=== PATIENT | female | born 1950 | race Caucasian/White ===

== ENCOUNTER 2023-09-24 06:10 | Inpatient (IN) ==
[2023-09-24] MEDS ORDERED: IOPAMIDOL 100 ML BOTTLE IV ONE (06:11)
[2023-09-24] MEDS: 0.9 % SODIUM CHLORIDE 1,000 ML IV ONE ×2 (06:52→08:19)
[2023-09-24] MEDS: ONDANSETRON 4 MG/2 ML VIAL IV ONE (06:52)
[2023-09-24 07:11] LABS: Basophils # (Auto) 0.03 K/mcL (0.00-0.30); Basophils % (Auto) 0.2 % (0.0-2.0); Eosinophils # (Auto) 0.23 K/mcL (0.00-0.70); Eosinophils % (Auto) 1.9 % (0.0-7.0); Hematocrit 44.2 % (34.1-44.9); Hemoglobin 14.5 g/dL (11.2-15.7); Lymphocytes # (Auto) 0.74 K/mcL (1.50-4.80); Mean Cell Volume 108.3 fL (80.0-100.0); Mean Corpuscular HGB Conc 32.8 g/dL (31.0-36.0); Mean Platelet Volume 8.8 fL (8.8-12.5); Monocytes # (Auto) 1.42 K/mcL (0.10-0.90); Monocytes % (Auto) 11.5 % (1.0-12.0); Neutrophils % (Auto) 79.7 % (38.0-78.0); Platelet Count 294 K/mcL (140-440); RBC 4.08 M/mcL (3.59-5.38); Red Cell Distribution Width 12.6 % (11.5-14.5); WBC 12.4 K/mcL (4.5-11.0)
[2023-09-24 07:13] LABS: Appearance,Urine Clear (Clear); Bilirubin,Urine Negative (Negative); Color,Urine Yellow; Culture Indicated,Urine No; Glucose,Urine (UA) Negative (Negative); Ketones,Urine Trace mg/dL (Negative); Leukocyte Esterase,Urine Negative /uL (Negative); Nitrate,Urine Negative (Negative); PH,Urine 5.5 (5.0-9.0); Protein,Urine Negative (Negative); Specific Gravity,Urine 1.015 (1.000-1.035); Urine Blood Negative ery/mcL (Negative); Urobilinogen,Urine Normal
[2023-09-24 07:32] LABS: ALT/SGPT 23 U/L (<40); AST/SGOT 28 U/L (<32); Albumin 3.3 gm/dL (3.2-5.2); Alkaline Phosphatase 124 U/L (39-117); Bilirubin,Total 0.4 mg/dL (0.1-1.0); Blood Urea Nitrogen 32 mg/dL (8-23); Calcium 9.2 mg/dL (8.6-10.4); Carbon Dioxide 28 mmol/L (22-30); Chloride 94 mmol/L (96-108); Globulin 3.2 gm/dL (2.2-3.7); Glomerular Filtration Rate 91; Glucose 105 mg/dL (70-105); Potassium 4.8 mmol/L (3.3-5.1); Sodium 133 mmol/L (133-145)
[2023-09-24] MEDS: VANCOMYCIN 1,000 MG in 0.9 % SODIUM CHLORIDE 250 ML IV ONE (10:04)
[2023-09-24] MEDS: KETOROLAC 15 MG/ML VIAL IV ONE (12:44)
[2023-09-24] MEDS ORDERED: POTASSIUM CHLORIDE 40 MEQ in DEXTROSE 5% IN WATER 500 ML IV PRN (15:43)
[2023-09-24] MEDS ORDERED: ONDANSETRON 4 MG/2 ML VIAL IV PRN (15:43)
[2023-09-24] MEDS ORDERED: POTASSIUM CHLORIDE 20 MEQ TABLET PO PRN ×2 (15:43)
[2023-09-24] MEDS ORDERED: MAGNESIUM SULFATE 2 GM/50 ML BAG IV PRN (15:43)
[2023-09-24] MEDS ORDERED: LABETALOL HCL 20 MG/4 ML VIAL IV PRN (16:01)
[2023-09-24] MEDS: ACETAMINOPHEN 325 MG TABLET PO PRN (16:08)
[2023-09-24] MEDS ORDERED: Pilocarpine Hcl 5 mg tablet PO PRN (16:14)
[2023-09-24] MEDS: metroNIDAZOLE 500 MG/100 ML BAG IV ONE (16:18)
[2023-09-24] MEDS: 0.9 % SODIUM CHLORIDE 1,000 ML IV SCH (16:18)
[2023-09-24] MEDS: VANCOMYCIN 125 MG CAPSULE PO SCH (16:19)
[2023-09-24] MEDS: 0.9 % SODIUM CHLORIDE 10 ML SYRINGE IV SCH (16:29)
[2023-09-24] MEDS: IPRATROPIUM/ALBUTEROL 3 ML AMPUL.NEB NEB PRN (20:13)
[2023-09-24] MEDS: GABAPENTIN 300 MG CAPSULE PO PRN (21:13)
[2023-09-24] MEDS: CYCLOBENZAPRINE 10 MG TABLET PO PRN (21:13)
[2023-09-24] MEDS: metroNIDAZOLE 500 MG/100 ML BAG IV SCH (21:13)
[2023-09-24] MEDS: CIPROFLOXACIN 400 MG/200 ML BAG IV ONE (22:51)
[2023-09-24] MEDS: CIPROFLOXACIN 400 MG/200 ML BAG IV SCH (22:54)
[2023-09-25 06:02] LABS: Basophils # (Auto) 0.02 K/mcL (0.00-0.30); Basophils % (Auto) 0.2 % (0.0-2.0); Eosinophils # (Auto) 0.15 K/mcL (0.00-0.70); Eosinophils % (Auto) 1.3 % (0.0-7.0); Hematocrit 39.2 % (34.1-44.9); Hemoglobin 12.6 g/dL (11.2-15.7); Lymphocytes # (Auto) 0.65 K/mcL (1.50-4.80); Lymphocytes % (Auto) 5.8 % (15.5-49.0); Mean Cell Volume 110.7 fL (80.0-100.0); Mean Corpuscular HGB Conc 32.1 g/dL (31.0-36.0); Mean Platelet Volume 8.9 fL (8.8-12.5); Monocytes # (Auto) 1.11 K/mcL (0.10-0.90); Monocytes % (Auto) 9.9 % (1.0-12.0); Neutrophils % (Auto) 81.8 % (38.0-78.0); Platelet Count 270 K/mcL (140-440); RBC 3.54 M/mcL (3.59-5.38); Red Cell Distribution Width 12.8 % (11.5-14.5); WBC 11.2 K/mcL (4.5-11.0)
[2023-09-25 06:14] LABS: ALT/SGPT 18 U/L (<40); AST/SGOT 28 U/L (<32); Albumin 2.9 gm/dL (3.2-5.2); Albumin/Globulin Ratio 1.1 (1.0-2.3); Alkaline Phosphatase 109 U/L (39-117); Bilirubin,Direct < 0.2 mg/dL (0-0.3); Bilirubin,Total 0.3 mg/dL (0.1-1.0); Blood Urea Nitrogen 18 mg/dL (8-23); Calcium 8.2 mg/dL (8.6-10.4); Carbon Dioxide 21 mmol/L (22-30); Chloride 103 mmol/L (96-108); Globulin 2.6 gm/dL (2.2-3.7); Glomerular Filtration Rate 115; Glucose 68 mg/dL (70-105); Lactate Dehydrogenase 203 U/L (135-225); Phosphorous 1.9 mg/dL (2.5-4.5); Potassium 4.7 mmol/L (3.3-5.1); Sodium 136 mmol/L (133-145); Triglycerides 96 mg/dL (<150); Uric Acid 3.5 mg/dL (2.5-8.0)
[2023-09-25] MEDS: ALPRAZolam 0.25 MG TABLET PO PRN (09:33)
[2023-09-25] MEDS: HYDROcodone/APAP 5/325MG TABLET PO PRN (09:34)
[2023-09-25] MEDS: predniSONE 5 MG TABLET PO SCH (09:35)
[2023-09-25] MEDS: ATORVASTATIN 40 MG TABLET PO SCH (09:35)
[2023-09-25] MEDS: MECLIZINE 25 MG TABLET PO SCH (09:35)
[2023-09-25] MEDS: ENOXAPARIN 30 MG/0.3 ML SYRINGE SQ SCH (09:35)
[2023-09-25] MEDS: predniSONE 1 MG TABLET PO SCH (09:35)
[2023-09-25] MEDS: TIOTROPIUM BROMIDE 18 MCG INHALANT INH SCH (09:36)
[2023-09-25] MEDS: LEFLUNOMIDE 20 MG TABLET PO SCH (09:40)
[2023-09-25] MEDS: SODIUM PHOSPHATE 30 MMOL in DEXTROSE 5% IN WATER 500 ML IV ONE (09:40)
[2023-09-25] MEDS: CIPROFLOXACIN 400 MG/200 ML BAG IV SCH (09:40)
[2023-09-26 05:42] LABS: Basophils # (Auto) 0.01 K/mcL (0.00-0.30); Basophils % (Auto) 0.1 % (0.0-2.0); Eosinophils % (Auto) 1.2 % (0.0-7.0); Hematocrit 38.8 % (34.1-44.9); Hemoglobin 12.8 g/dL (11.2-15.7); Lymphocytes # (Auto) 0.74 K/mcL (1.50-4.80); Lymphocytes % (Auto) 8.8 % (15.5-49.0); Mean Cell Volume 108.1 fL (80.0-100.0); Mean Platelet Volume 8.7 fL (8.8-12.5); Monocytes # (Auto) 0.65 K/mcL (0.10-0.90); Monocytes % (Auto) 7.7 % (1.0-12.0); Neutrophils % (Auto) 80.8 % (38.0-78.0); Platelet Count 261 K/mcL (140-440); RBC 3.59 M/mcL (3.59-5.38); Red Cell Distribution Width 12.5 % (11.5-14.5); WBC 8.4 K/mcL (4.5-11.0)
[2023-09-26 06:09] LABS: ALT/SGPT 16 U/L (<40); AST/SGOT 24 U/L (<32); Albumin/Globulin Ratio 1.3 (1.0-2.3); Alkaline Phosphatase 107 U/L (39-117); Bilirubin,Direct < 0.2 mg/dL (0-0.3); Bilirubin,Total 0.3 mg/dL (0.1-1.0); Blood Urea Nitrogen 5 mg/dL (8-23); Calcium 8.2 mg/dL (8.6-10.4); Carbon Dioxide 28 mmol/L (22-30); Chloride 101 mmol/L (96-108); Globulin 2.4 gm/dL (2.2-3.7); Glomerular Filtration Rate 115; Glucose 81 mg/dL (70-105); Lactate Dehydrogenase 194 U/L (135-225); Phosphorous 1.7 mg/dL (2.5-4.5); Potassium 4.1 mmol/L (3.3-5.1); Sodium 136 mmol/L (133-145); Triglycerides 50 mg/dL (<150); Uric Acid 1.8 mg/dL (2.5-8.0)
[2023-09-26] MEDS: LISINOPRIL 10 MG TABLET PO SCH (08:58)
[2023-09-26] MEDS: PHOSPHORUS 250 MG TABLET PO SCH (08:58)
[2023-09-26] MEDS: amLODIPine 5 MG TABLET PO SCH (08:58)
[2023-09-26] MEDS: NEUTRA PHOS 1 PACKET PO SCH (08:59)
[2023-09-26] MEDS: SODIUM PHOSPHATE 30 MMOL in DEXTROSE 5% IN WATER 500 ML IV ONE (10:10)
[2023-09-27 07:14] LABS: Phosphorous 1.8 mg/dL (2.5-4.5)
[2023-09-27 07:35] LABS: Basophils # (Auto) 0.02 K/mcL (0.00-0.30); Basophils % (Auto) 0.2 % (0.0-2.0); Eosinophils # (Auto) 0.06 K/mcL (0.00-0.70); Eosinophils % (Auto) 0.7 % (0.0-7.0); Hematocrit 41.8 % (34.1-44.9); Hemoglobin 13.8 g/dL (11.2-15.7); Lymphocytes # (Auto) 0.88 K/mcL (1.50-4.80); Mean Cell Volume 106.6 fL (80.0-100.0); Monocytes # (Auto) 0.75 K/mcL (0.10-0.90); Monocytes % (Auto) 8.5 % (1.0-12.0); Neutrophils % (Auto) 78.7 % (38.0-78.0); Platelet Count 278 K/mcL (140-440); RBC 3.92 M/mcL (3.59-5.38); Red Cell Distribution Width 12.4 % (11.5-14.5); WBC 8.8 K/mcL (4.5-11.0)
[2023-09-27 07:44] LABS: ALT/SGPT 21 U/L (<40); AST/SGOT 36 U/L (<32); Albumin 3.2 gm/dL (3.2-5.2); Albumin/Globulin Ratio 1.1 (1.0-2.3); Alkaline Phosphatase 123 U/L (39-117); Bilirubin,Total 0.4 mg/dL (0.1-1.0); Blood Urea Nitrogen 4 mg/dL (8-23); Calcium 8.4 mg/dL (8.6-10.4); Carbon Dioxide 28 mmol/L (22-30); Chloride 98 mmol/L (96-108); Globulin 2.8 gm/dL (2.2-3.7); Glomerular Filtration Rate 115; Glucose 99 mg/dL (70-105); Potassium 3.6 mmol/L (3.3-5.1); Sodium 138 mmol/L (133-145)
[2023-09-27] MEDS: ALENDRONATE SODIUM 70 MG TABLET PO SCH (07:55)
[2023-09-27] MEDS: METOPROLOL TARTRATE 5 MG/5 ML VIAL IV SCH (11:19)
[2023-09-27] MEDS: POTASSIUM PHOSPHATE 40 MEQ in DEXTROSE 5% IN WATER 500 ML IV ONE (11:25)
[2023-09-27] MEDS: LACTOBACILLUS 1 CAPSULE PO ONE (14:50)
[2023-09-27] MEDS: ONDANSETRON 4 MG/2 ML VIAL IV ONE (14:50)
[2023-09-27] MEDS: MAG HYDROX/AL HYDROX/SIMETH 30 ML ORAL.SUSP PO ONE (14:50)
[2023-09-27] MEDS: metroNIDAZOLE 500 MG TABLET PO SCH (15:02)
[2023-09-27] MEDS: LACTOBACILLUS 1 CAPSULE PO SCH (20:50)
[2023-09-27] MEDS: CIPROFLOXACIN 500 MG TABLET PO SCH (21:10)
[2023-09-28 06:41] LABS: ALT/SGPT 21 U/L (<40); AST/SGOT 33 U/L (<32); Albumin/Globulin Ratio 1.2 (1.0-2.3); Alkaline Phosphatase 110 U/L (39-117); Bilirubin,Total 0.5 mg/dL (0.1-1.0); Blood Urea Nitrogen 6 mg/dL (8-23); Calcium 8.8 mg/dL (8.6-10.4); Carbon Dioxide 30 mmol/L (22-30); Chloride 98 mmol/L (96-108); Globulin 2.5 gm/dL (2.2-3.7); Glomerular Filtration Rate 104; Glucose 74 mg/dL (70-105); Potassium 4.4 mmol/L (3.3-5.1); Sodium 136 mmol/L (133-145)
[2023-09-28 07:16] LABS: Basophils # (Auto) 0.03 K/mcL (0.00-0.30); Basophils % (Auto) 0.4 % (0.0-2.0); Eosinophils # (Auto) 0.05 K/mcL (0.00-0.70); Eosinophils % (Auto) 0.7 % (0.0-7.0); Hematocrit 41.2 % (34.1-44.9); Hemoglobin 13.9 g/dL (11.2-15.7); Lymphocytes # (Auto) 1.06 K/mcL (1.50-4.80); Mean Cell Volume 105.9 fL (80.0-100.0); Mean Corpuscular HGB Conc 33.7 g/dL (31.0-36.0); Mean Platelet Volume 8.8 fL (8.8-12.5); Monocytes # (Auto) 0.69 K/mcL (0.10-0.90); Monocytes % (Auto) 9.1 % (1.0-12.0); Neutrophils % (Auto) 72.2 % (38.0-78.0); Platelet Count 266 K/mcL (140-440); RBC 3.89 M/mcL (3.59-5.38); Red Cell Distribution Width 12.2 % (11.5-14.5); WBC 7.6 K/mcL (4.5-11.0)
[2023-09-28] MEDS: METOPROLOL TARTRATE 25 MG TABLET PO SCH (09:17)
[2023-09-28] MEDS: ENOXAPARIN 40 MG/0.4 ML SYRINGE SQ SCH (09:18)
[2023-09-28] MEDS: HYDROcodone/APAP 5/325MG TABLET PO PRN (11:15)
[2023-09-28] MEDS: GABAPENTIN 300 MG CAPSULE PO SCH (14:08)
[2023-09-29 05:52] LABS: Basophils # (Auto) 0.02 K/mcL (0.00-0.30); Basophils % (Auto) 0.2 % (0.0-2.0); Eosinophils # (Auto) 0.09 K/mcL (0.00-0.70); Hematocrit 41.8 % (34.1-44.9); Hemoglobin 14.1 g/dL (11.2-15.7); Lymphocytes # (Auto) 1.65 K/mcL (1.50-4.80); Lymphocytes % (Auto) 19.2 % (15.5-49.0); Mean Cell Volume 105.6 fL (80.0-100.0); Mean Corpuscular HGB Conc 33.7 g/dL (31.0-36.0); Mean Platelet Volume 8.2 fL (8.8-12.5); Monocytes # (Auto) 0.84 K/mcL (0.10-0.90); Monocytes % (Auto) 9.8 % (1.0-12.0); Neutrophils % (Auto) 66.3 % (38.0-78.0); Platelet Count 257 K/mcL (140-440); RBC 3.96 M/mcL (3.59-5.38); Red Cell Distribution Width 12.2 % (11.5-14.5); WBC 8.6 K/mcL (4.5-11.0)
[2023-09-29 06:29] LABS: ALT/SGPT 27 U/L (<40); AST/SGOT 40 U/L (<32); Albumin 3.3 gm/dL (3.2-5.2); Albumin/Globulin Ratio 1.3 (1.0-2.3); Alkaline Phosphatase 112 U/L (39-117); Bilirubin,Total 0.4 mg/dL (0.1-1.0); Blood Urea Nitrogen 10 mg/dL (8-23); Calcium 9.1 mg/dL (8.6-10.4); Carbon Dioxide 30 mmol/L (22-30); Chloride 97 mmol/L (96-108); Globulin 2.6 gm/dL (2.2-3.7); Glomerular Filtration Rate 104; Glucose 91 mg/dL (70-105); Potassium 4.5 mmol/L (3.3-5.1); Sodium 136 mmol/L (133-145)
[2023-09-30 06:31] LABS: Basophils # (Auto) 0.05 K/mcL (0.00-0.30); Basophils % (Auto) 0.5 % (0.0-2.0); Eosinophils # (Auto) 0.11 K/mcL (0.00-0.70); Hematocrit 44.5 % (34.1-44.9); Hemoglobin 14.8 g/dL (11.2-15.7); Lymphocytes # (Auto) 1.97 K/mcL (1.50-4.80); Lymphocytes % (Auto) 18.7 % (15.5-49.0); Mean Cell Volume 106.7 fL (80.0-100.0); Mean Corpuscular HGB Conc 33.3 g/dL (31.0-36.0); Mean Platelet Volume 8.6 fL (8.8-12.5); Monocytes # (Auto) 0.84 K/mcL (0.10-0.90); Neutrophils % (Auto) 69.4 % (38.0-78.0); Platelet Count 322 K/mcL (140-440); RBC 4.17 M/mcL (3.59-5.38); Red Cell Distribution Width 12.2 % (11.5-14.5); WBC 10.5 K/mcL (4.5-11.0)
[2023-09-30 06:55] LABS: ALT/SGPT 27 U/L (<40); AST/SGOT 40 U/L (<32); Albumin 3.5 gm/dL (3.2-5.2); Albumin/Globulin Ratio 1.2 (1.0-2.3); Alkaline Phosphatase 121 U/L (39-117); Bilirubin,Total 0.3 mg/dL (0.1-1.0); Blood Urea Nitrogen 14 mg/dL (8-23); Calcium 9.5 mg/dL (8.6-10.4); Carbon Dioxide 31 mmol/L (22-30); Chloride 95 mmol/L (96-108); Globulin 2.9 gm/dL (2.2-3.7); Glomerular Filtration Rate 104; Glucose 95 mg/dL (70-105); Potassium 4.5 mmol/L (3.3-5.1); Sodium 135 mmol/L (133-145)
== END 2023-09-30 12:25 | DRG 308 ==
LOC: ED 06:10 → MEDSUR 15:32 → ICU 09-27 12:21 → MEDSUR 09-29 17:33
PROVIDERS: ADMIT Internal Medicine; ATTEND Student in an Organized Health Care Education/Training Program

== ENCOUNTER 2023-12-12 07:30 | Inpatient (IN) ==
[2023-12-12] MEDS ORDERED: IOPAMIDOL 100 ML BOTTLE IV ONE (07:31)
[2023-12-12 08:22] LABS: Basophils # (Auto) 0.02 K/mcL (0.00-0.30); Basophils % (Auto) 0.2 % (0.0-2.0); Eosinophils # (Auto) 0.18 K/mcL (0.00-0.70); Eosinophils % (Auto) 1.8 % (0.0-7.0); Hematocrit 43.4 % (34.1-44.9); Hemoglobin 13.9 g/dL (11.2-15.7); Lymphocytes # (Auto) 0.78 K/mcL (1.50-4.80); Lymphocytes % (Auto) 7.6 % (15.5-49.0); Mean Cell Volume 108.2 fL (80.0-100.0); Mean Platelet Volume 9.2 fL (8.8-12.5); Monocytes # (Auto) 0.64 K/mcL (0.10-0.90); Monocytes % (Auto) 6.2 % (1.0-12.0); Neutrophils % (Auto) 83.4 % (38.0-78.0); Platelet Count 233 K/mcL (140-440); RBC 4.01 M/mcL (3.59-5.38); Red Cell Distribution Width 12.6 % (11.5-14.5); WBC 10.3 K/mcL (4.5-11.0)
[2023-12-12 08:28] LABS: Prothrombin Time 13.1 sec (11.9-14.5)
[2023-12-12 08:46] LABS: Creatine Kinase 152 U/L (24-170)
[2023-12-12 08:48] LABS: ALT/SGPT 23 U/L (<40); AST/SGOT 29 U/L (<32); Albumin 3.4 gm/dL (3.2-5.2); Albumin/Globulin Ratio 1.4 (1.0-2.3); Alkaline Phosphatase 104 U/L (39-117); Bilirubin,Total 0.4 mg/dL (0.1-1.0); Blood Urea Nitrogen 21 mg/dL (8-23); Calcium 8.7 mg/dL (8.6-10.4); Carbon Dioxide 29 mmol/L (22-30); Chloride 95 mmol/L (96-108); Globulin 2.5 gm/dL (2.2-3.7); Glomerular Filtration Rate 114; Glucose 118 mg/dL (70-105); Sodium 133 mmol/L (133-145)
[2023-12-12] MEDS: DIPH,PERTUSS(ACELL),TET VAC/PF 0.5 ML SYRINGE IM ONE (08:48)
[2023-12-12] MEDS: HYDROcodone/APAP 10/325MG TABLET PO ONE (08:49)
[2023-12-12] MEDS: HYDROcodone/APAP 5/325MG TABLET PO ONE (08:49)
[2023-12-12 08:58] LABS: ABG Methemoglobin 0.3 % (0.4-1.5); Total Hemoglobin 13.8 gm/Dl (12.0-15.0); VBG Base Excess 5 (-2-3); VBG Oxygen Saturation 64.4 % (40.0-70.0); VBG PCO2 66.8 mmHg (41.0-51.0); VBG PH 7.31 U (7.32-7.42); VBG PO2 38.4 mmHg (25.0-40.0); VBG Total CO2 35.1 mmol/L (25.0-29.0)
[2023-12-12] MEDS: KETOROLAC 30 MG/ML VIAL IV ONE (09:08)
[2023-12-12] MEDS: IPRATROPIUM/ALBUTEROL 3 ML AMPUL.NEB NEB ONE ×2 (09:31)
[2023-12-12] MEDS: fentaNYL 100 MCG/2 ML VIAL IV ONE (10:01)
[2023-12-12] MEDS: methylPREDNISolone SOD SUCC 125 MG/2 ML VIAL IV ONE (10:01)
[2023-12-12 12:00] LABS: Appearance,Urine Clear (Clear); Bilirubin,Urine Negative (Negative); Color,Urine Yellow; Glucose,Urine (UA) Negative (Negative); Ketones,Urine Negative (Negative); Leukocyte Esterase,Urine Negative /uL (Negative); Nitrate,Urine Negative (Negative); PH,Urine 7.5 (5.0-9.0); Protein,Urine Negative (Negative); Specific Gravity,Urine 1.015 (1.000-1.035); Urine Blood Trace-intact ery/mcL (Negative); Urine RBC 0 /hpf (0-3); Urine Squamous Epithelial Cell 0 /hpf (0-4); Urine WBC 0 /hpf (0-4); Urobilinogen,Urine Normal
[2023-12-12] MEDS ORDERED: MAGNESIUM SULFATE 2 GM/50 ML BAG IV PRN (12:02)
[2023-12-12] MEDS ORDERED: POTASSIUM CHLORIDE 40 MEQ in DEXTROSE 5% IN WATER 500 ML IV PRN (12:02)
[2023-12-12] MEDS ORDERED: METOPROLOL TARTRATE 5 MG/5 ML VIAL IV PRN (12:02)
[2023-12-12] MEDS ORDERED: LABETALOL HCL 20 MG/4 ML VIAL IV PRN (12:02)
[2023-12-12] MEDS ORDERED: METOCLOPRAMIDE 10 MG/2 ML VIAL IV PRN (12:02)
[2023-12-12] MEDS ORDERED: POTASSIUM CHLORIDE 20 MEQ TABLET PO PRN ×2 (12:02)
[2023-12-12 12:37] LABS: Creatine Kinase 277 U/L (24-170)
[2023-12-12] MEDS: 0.9 % SODIUM CHLORIDE 500 ML IV ONE (13:08)
[2023-12-12] MEDS: 0.9 % SODIUM CHLORIDE 10 ML SYRINGE IV SCH (13:09)
[2023-12-12] MEDS: HYDROcodone/APAP 5/325MG TABLET PO PRN (13:09)
[2023-12-12] MEDS: morphine 4 MG/ML VIAL IV PRN (15:10)
[2023-12-12] MEDS: IPRATROPIUM/ALBUTEROL 3 ML AMPUL.NEB NEB PRN (19:02)
[2023-12-12] MEDS: DOCUSATE SODIUM 100 MG CAPSULE PO SCH (20:40)
[2023-12-13 06:36] LABS: ALT/SGPT 24 U/L (<40); AST/SGOT 32 U/L (<32); Albumin 3.2 gm/dL (3.2-5.2); Albumin/Globulin Ratio 1.3 (1.0-2.3); Alkaline Phosphatase 93 U/L (39-117); Bilirubin,Direct < 0.2 mg/dL (0-0.3); Bilirubin,Total 0.4 mg/dL (0.1-1.0); Blood Urea Nitrogen 19 mg/dL (8-23); Calcium 8.8 mg/dL (8.6-10.4); Carbon Dioxide 32 mmol/L (22-30); Chloride 100 mmol/L (96-108); Globulin 2.4 gm/dL (2.2-3.7); Glomerular Filtration Rate 114; Glucose 90 mg/dL (70-105); Lactate Dehydrogenase 196 U/L (135-225); Phosphorous 2.9 mg/dL (2.5-4.5); Potassium 4.3 mmol/L (3.3-5.1); Sodium 138 mmol/L (133-145); Triglycerides 96 mg/dL (<150); Uric Acid 2.5 mg/dL (2.5-8.0)
[2023-12-13] MEDS: HYDROcodone/APAP 5/325MG TABLET PO ONE (13:11)
[2023-12-13] MEDS ORDERED: GABAPENTIN 300 MG CAPSULE PO PRN (13:13)
[2023-12-13] MEDS: SENNOSIDES 1 TABLET PO PRN (13:13)
[2023-12-13] MEDS: POLYETHYLENE GLYCOL 3350 17 GM PACKET PO PRN (13:13)
[2023-12-13] MEDS: LORazepam 2 MG/ML VIAL IV PRN (13:53)
[2023-12-13] MEDS ORDERED: LIDOCAINE 4% TOP PATCH TOPICAL PRN (14:00)
[2023-12-13] MEDS: HYDROcodone/APAP 10/325MG TABLET PO PRN (17:44)
[2023-12-13] MEDS: APIXABAN 5 MG TABLET PO SCH (22:01)
[2023-12-13] MEDS: DOXYCYCLINE HYCLATE 100 MG TABLET.ORL PO SCH (22:01)
[2023-12-13] MEDS: MIRTAZAPINE 15 MG TABLET PO SCH (22:01)
[2023-12-14 06:28] LABS: Basophils # (Auto) 0.03 K/mcL (0.00-0.30); Basophils % (Auto) 0.4 % (0.0-2.0); Eosinophils % (Auto) 3.6 % (0.0-7.0); Hematocrit 41.9 % (34.1-44.9); Hemoglobin 13.5 g/dL (11.2-15.7); Lymphocytes # (Auto) 1.23 K/mcL (1.50-4.80); Lymphocytes % (Auto) 14.6 % (15.5-49.0); Mean Cell Volume 109.1 fL (80.0-100.0); Mean Corpuscular HGB Conc 32.2 g/dL (31.0-36.0); Mean Platelet Volume 9.5 fL (8.8-12.5); Monocytes # (Auto) 0.71 K/mcL (0.10-0.90); Monocytes % (Auto) 8.4 % (1.0-12.0); Neutrophils % (Auto) 72.4 % (38.0-78.0); Platelet Count 250 K/mcL (140-440); RBC 3.84 M/mcL (3.59-5.38); Red Cell Distribution Width 12.9 % (11.5-14.5); WBC 8.5 K/mcL (4.5-11.0)
[2023-12-14 06:47] LABS: Creatine Kinase 97 U/L (24-170)
[2023-12-14 06:58] LABS: ALT/SGPT 22 U/L (<40); AST/SGOT 32 U/L (<32); Albumin 3.3 gm/dL (3.2-5.2); Albumin/Globulin Ratio 1.3 (1.0-2.3); Alkaline Phosphatase 101 U/L (39-117); Bilirubin,Total 0.3 mg/dL (0.1-1.0); Blood Urea Nitrogen 16 mg/dL (8-23); Calcium 8.9 mg/dL (8.6-10.4); Carbon Dioxide 31 mmol/L (22-30); Chloride 96 mmol/L (96-108); Globulin 2.5 gm/dL (2.2-3.7); Glomerular Filtration Rate 104; Glucose 94 mg/dL (70-105); Potassium 4.5 mmol/L (3.3-5.1); Sodium 135 mmol/L (133-145)
[2023-12-14] MEDS: predniSONE 5 MG TABLET PO SCH (07:17)
[2023-12-14] MEDS: predniSONE 1 MG TABLET PO SCH (07:17)
[2023-12-14] MEDS: ALENDRONATE SODIUM 70 MG TABLET PO SCH (07:17)
[2023-12-14] MEDS: MULTIVIT,THER IRON,CA,FA & MIN 1 TABLET PO SCH (08:33)
[2023-12-14] MEDS: ASCORBIC ACID 500 MG TABLET PO SCH (08:33)
[2023-12-14] MEDS: PRIMIDONE 50 MG TABLET PO SCH (08:34)
[2023-12-14] MEDS: amLODIPine 5 MG TABLET PO SCH (08:34)
[2023-12-14] MEDS: METOPROLOL TARTRATE 25 MG TABLET PO SCH (08:34)
[2023-12-14] MEDS: ATORVASTATIN 40 MG TABLET PO SCH (08:34)
[2023-12-14] MEDS: LISINOPRIL 10 MG TABLET PO SCH (08:35)
[2023-12-14] MEDS: LEFLUNOMIDE 10 MG TABLET PO SCH (08:35)
[2023-12-14] MEDS: TIOTROPIUM BROMIDE 18 MCG INHALANT INH SCH (08:50)
[2023-12-14] MEDS: DICLOFENAC SODIUM 100 MG PO SCH (08:50)
[2023-12-14] MEDS: ONDANSETRON 4 MG/2 ML VIAL IV PRN (09:58)
[2023-12-14] MEDS: CYCLOBENZAPRINE 10 MG TABLET PO PRN (09:58)
[2023-12-14] MEDS: SILVER TOPICAL SCH (20:49)
[2023-12-15 07:11] LABS: Basophils # (Auto) 0.03 K/mcL (0.00-0.30); Basophils % (Auto) 0.4 % (0.0-2.0); Eosinophils % (Auto) 4.9 % (0.0-7.0); Hematocrit 42.2 % (34.1-44.9); Hemoglobin 13.8 g/dL (11.2-15.7); Lymphocytes # (Auto) 1.08 K/mcL (1.50-4.80); Lymphocytes % (Auto) 13.1 % (15.5-49.0); Mean Cell Volume 105.8 fL (80.0-100.0); Mean Corpuscular HGB Conc 32.7 g/dL (31.0-36.0); Mean Platelet Volume 9.2 fL (8.8-12.5); Monocytes # (Auto) 0.71 K/mcL (0.10-0.90); Monocytes % (Auto) 8.6 % (1.0-12.0); Platelet Count 247 K/mcL (140-440); RBC 3.99 M/mcL (3.59-5.38); Red Cell Distribution Width 12.8 % (11.5-14.5); WBC 8.2 K/mcL (4.5-11.0)
[2023-12-15 07:40] LABS: ALT/SGPT 21 U/L (<40); AST/SGOT 25 U/L (<32); Albumin 3.2 gm/dL (3.2-5.2); Albumin/Globulin Ratio 1.3 (1.0-2.3); Alkaline Phosphatase 97 U/L (39-117); Bilirubin,Total 0.4 mg/dL (0.1-1.0); Blood Urea Nitrogen 19 mg/dL (8-23); Carbon Dioxide 30 mmol/L (22-30); Chloride 97 mmol/L (96-108); Globulin 2.5 gm/dL (2.2-3.7); Glomerular Filtration Rate 114; Glucose 92 mg/dL (70-105); Potassium 4.4 mmol/L (3.3-5.1); Sodium 136 mmol/L (133-145)
[2023-12-15] MEDS: ACETAMINOPHEN 325 MG TABLET PO PRN (14:25)
[2023-12-16 06:56] LABS: Basophils # (Auto) 0.02 K/mcL (0.00-0.30); Basophils % (Auto) 0.2 % (0.0-2.0); Eosinophils # (Auto) 0.43 K/mcL (0.00-0.70); Eosinophils % (Auto) 3.9 % (0.0-7.0); Hematocrit 44.2 % (34.1-44.9); Hemoglobin 14.4 g/dL (11.2-15.7); Lymphocytes # (Auto) 1.03 K/mcL (1.50-4.80); Lymphocytes % (Auto) 9.2 % (15.5-49.0); Mean Corpuscular HGB Conc 32.6 g/dL (31.0-36.0); Mean Platelet Volume 9.1 fL (8.8-12.5); Monocytes # (Auto) 0.82 K/mcL (0.10-0.90); Monocytes % (Auto) 7.4 % (1.0-12.0); Neutrophils % (Auto) 78.8 % (38.0-78.0); Platelet Count 263 K/mcL (140-440); RBC 4.17 M/mcL (3.59-5.38); Red Cell Distribution Width 12.7 % (11.5-14.5); WBC 11.2 K/mcL (4.5-11.0)
[2023-12-16 07:29] LABS: ALT/SGPT 23 U/L (<40); AST/SGOT 46 U/L (<32); Albumin 3.3 gm/dL (3.2-5.2); Albumin/Globulin Ratio 1.2 (1.0-2.3); Alkaline Phosphatase 104 U/L (39-117); Bilirubin,Total 0.4 mg/dL (0.1-1.0); Blood Urea Nitrogen 21 mg/dL (8-23); Calcium 9.2 mg/dL (8.6-10.4); Carbon Dioxide 36 mmol/L (22-30); Chloride 96 mmol/L (96-108); Globulin 2.7 gm/dL (2.2-3.7); Glomerular Filtration Rate 114; Glucose 96 mg/dL (70-105); Potassium 4.7 mmol/L (3.3-5.1); Sodium 136 mmol/L (133-145)
== END 2023-12-16 13:10 | DRG 183 ==
LOC: ED 07:30 → MEDSUR 07:30
PROVIDERS: ADMIT Internal Medicine; ATTEND Student in an Organized Health Care Education/Training Program